=== PATIENT | male | born 2000 | race Caucasian/White ===

== ENCOUNTER 2022-04-24 23:07 | Emergency (ER) | payer BC, OTHER ==
[2022-04-24 23:39] VITALS: BP 126/89
[2022-04-25] MEDS ORDERED: LIDOCAINE 1% HCL (LOCAL ANESTH.) INJ 20ML MDV IJ ONE (01:15)
[2022-04-25] MEDS ORDERED: TETANUS-DIPTH-ACEL PERTUSSIS 0.5ML SYR Tdap IM ONE (01:15)
== END 2022-04-25 01:32 | disposition home or self-care (01) ==
LOC: ER 23:07
DX: S91.109A Unspecified open wound of unspecified toe(s) without damage to nail, initial encounter (principal); W23.0XXA Caught, crushed, jammed, or pinched between moving objects, initial encounter; Y93.89 Activity, other specified; Y92.89 Other specified places as the place of occurrence of the external cause; Y99.8 Other external cause status
CPT/HCPCS: 11730; 90471; 90715